=== PATIENT | male | born 1945 | race Caucasian/White ===

== ENCOUNTER 2019-06-14 09:39 | Inpatient (IN) ==
[2019-06-14] MEDS ORDERED: ONDANSETRON 4 MG/2 ML VIAL IV STA (10:12)
[2019-06-14] MEDS ORDERED: SODIUM CHLORIDE 0.9% 1,000 ML IV STA (10:12)
[2019-06-14] MEDS ORDERED: PANTOPRAZOLE 40 MG VIAL IV STA (10:12)
[2019-06-14 10:57] LABS: Basophils % 0.3 % (0.0-0.8); Eosinophils % 0.1 % (0.00-10.9); Hemoglobin 11.8 GM/DL (14.0-18.0); Immature Granulocytes % 0.2 %; Immature Granulocytes Absolute 0.02 #; Lymphocytes # 1.3 10*3/uL (1.4-4.0); Lymphocytes % 14.1 % (21.2-54.2); Mean Corpuscular HGB Conc 32.8 GM/DL (32-36); Mean Corpuscular Volume 99.2 FL (87-102); Mean Platelet Volume 9.9 FL (9.6-12.0); Monocytes % 4.1 % (1.7-12.7); Neutrophils % 81.2 % (38.7-73.9); Platelet Count 210 T/CUMM (130-400); Red Blood Count 3.63 MC/CUMM (3.8-5.5); Red Cell Distribution Width 13.3 % (9.3-17.3); White Blood Count 9.3 T/CUMM (4-12)
[2019-06-14 11:09] LABS: PT Patient Result 10.5 SECS (9.8-11.9); Partial Thromboplastin Time 21.6 SECS (23.9-33.8)
[2019-06-14 11:22] LABS: Alanine Aminotransferase 18 U/L (16-61); Albumin 3.3 G/DL (3.4-5.0); Alkaline Phosphatase 99 U/L (45-117); Aspartate Amino Transferase 11 U/L (0-37); Blood Urea Nitrogen 52 MG/DL (7-18); Calcium 8.8 MG/DL (8.5-10.1); Estimated Glom Filtration Rate 98 ML/MIN; Glucose 98 MG/DL (74-106); Osmolality,Calculated 292.4 MOS/KG (273-304); Total Protein 6.8 G/DL (6.4-8.3); Troponin I < 0.015 NG/ML (0.00-0.045)
[2019-06-14] MEDS ORDERED: ACETAMINOPHEN 325 MG TABLET PO PRN (12:11)
[2019-06-14] MEDS ORDERED: GLUCAGON 1 MG VIAL IM PRN (12:11)
[2019-06-14] MEDS ORDERED: DEXTROSE 10% 250 ML BAG IV PRN (12:11)
[2019-06-14] MEDS: SODIUM CHLORIDE 0.9% 1,000 ML IV SCH (15:26)
[2019-06-14 16:42] LABS: Hematocrit 29.2 VOL% (42.0-52.0)
[2019-06-14 16:46] LABS: Hemoglobin 9.7 GM/DL (14.0-18.0)
[2019-06-14] MEDS: TAMSULOSIN 0.4 MG CAPSULE PO SCH (21:07)
[2019-06-14] MEDS: PANTOPRAZOLE 40 MG VIAL IV SCH (21:07)
[2019-06-15] MEDS: SODIUM CHLORIDE 0.9% 1,000 ML IV SCH ×2 (03:50→17:10)
[2019-06-15 06:41] LABS: Basophils % 0.7 % (0.0-0.8); Eosinophils # 0.1 10*3/uL (0.0-0.87); Hematocrit 28.8 VOL% (42.0-52.0); Hemoglobin 9.4 GM/DL (14.0-18.0); Immature Granulocytes % 0.2 %; Immature Granulocytes Absolute 0.01 #; Lymphocytes # 1.8 10*3/uL (1.4-4.0); Lymphocytes % 30.1 % (21.2-54.2); Mean Corpuscular HGB Conc 32.6 GM/DL (32-36); Mean Corpuscular Volume 97.3 FL (87-102); Mean Platelet Volume 9.9 FL (9.6-12.0); Monocytes % 6.9 % (1.7-12.7); Neutrophils % 60.1 % (38.7-73.9); Platelet Count 171 T/CUMM (130-400); Red Blood Count 2.96 MC/CUMM (3.8-5.5); Red Cell Distribution Width 13.4 % (9.3-17.3); White Blood Count 5.9 T/CUMM (4-12)
[2019-06-15 07:27] LABS: Albumin 2.7 G/DL (3.4-5.0); Bilirubin,Total 0.9 MG/DL (0.2-1.0); Calcium 8.1 MG/DL (8.5-10.1); Osmolality,Calculated 290.8 MOS/KG (273-304); Risk Ratio 3.5; Thyroid Stimulating Hormone 5.43 uIU/ml (0.358-3.74); Total Protein 5.6 G/DL (6.4-8.3); VLDL CHOLESTEROL 20.8 MG/DL
[2019-06-15] MEDS: TAMSULOSIN 0.4 MG CAPSULE PO SCH ×2 (09:00→21:10)
[2019-06-15] MEDS: PANTOPRAZOLE 40 MG VIAL IV SCH ×2 (10:49→21:10)
[2019-06-15] MEDS: LACTATED RINGERS 1,000 ML IV SCH (12:28)
[2019-06-16 06:53] LABS: Basophils # 0.1 10*3/uL (0.0-0.2); Basophils % 1.1 % (0.0-0.8); Eosinophils # 0.2 10*3/uL (0.0-0.87); Eosinophils % 3.2 % (0.00-10.9); Hematocrit 26.7 VOL% (42.0-52.0); Immature Granulocytes % 0.2 %; Immature Granulocytes Absolute 0.01 #; Lymphocytes # 1.5 10*3/uL (1.4-4.0); Lymphocytes % 31.3 % (21.2-54.2); Mean Corpuscular HGB Conc 33.7 GM/DL (32-36); Mean Corpuscular Volume 97.1 FL (87-102); Mean Platelet Volume 9.9 FL (9.6-12.0); Monocytes % 8.6 % (1.7-12.7); Neutrophils % 55.6 % (38.7-73.9); Platelet Count 157 T/CUMM (130-400); Red Blood Count 2.75 MC/CUMM (3.8-5.5); Red Cell Distribution Width 13.5 % (9.3-17.3); White Blood Count 4.6 T/CUMM (4-12)
[2019-06-16 07:44] LABS: Albumin 2.7 G/DL (3.4-5.0); Bilirubin,Total 0.4 MG/DL (0.2-1.0); Total Protein 5.6 G/DL (6.4-8.3)
[2019-06-16] MEDS ORDERED: LIDOCAINE 2% 5 ML VIAL ONE (09:00)
[2019-06-16] MEDS ORDERED: propofoL 200 MG/20 ML VIAL IV ONE (09:00)
[2019-06-16] MEDS: LACTATED RINGERS 1,000 ML IV SCH (09:42)
[2019-06-16] MEDS: TAMSULOSIN 0.4 MG CAPSULE PO SCH (09:44)
[2019-06-16] MEDS: PANTOPRAZOLE 40 MG VIAL IV SCH (09:44)
[2019-06-16] MEDS: SODIUM CHLORIDE 0.9% 1,000 ML IV SCH (09:45)
[2019-06-16 11:28] VITALS: BP 127/82
== END 2019-06-16 11:27 | disposition home or self-care (01) | DRG 379 ==
LOC: N.ED 09:39 → N.EDINP 12:07 → N.3E 13:49
PROVIDERS: ADMIT Family Medicine; ATTEND Family Medicine